=== PATIENT | male | born 1965 | race American Indian/Alaskan Native ===

== ENCOUNTER 2016-12-07 01:53 | Inpatient (IN) | payer OTHER, SELFPAY ==
[2016-12-07] MEDS ORDERED: NACL 0.9% 1000 ML 1,000 ML IV ONE ×2 (02:00→04:19)
[2016-12-07 02:31] LABS: Hematocrit 32.3 % (35.5-45.6); Hemoglobin 10.9 gm/dl (11.8-15.2); Mean Corpuscular HGB Conc 34 % (32-34); Mean Corpuscular Hemoglobin 32 pg (28-32); Mean Corpuscular Volume 93 fl (84-94); Red Blood Count 3.46 M/mm3 (3.65-5.03); Red Cell Distribution Width 13.4 % (13.2-15.2); White Blood Count 11.2 K/mm3 (4.5-11.0)
[2016-12-07 02:32] LABS: Platelet Count 292 K/mm3 (140-440)
[2016-12-07 02:42] LABS: INR 1.08 (0.87-1.13); Partial Thromboplastin Time 23.7 Sec. (24.2-36.6)
[2016-12-07 02:55] LABS: Alanine Aminotransferase 12 units/L (7-56); Albumin 3.5 g/dL (3.9-5); Alkaline Phosphatase 57 units/L (35-129); Anion Gap 18 mmol/L; Bilirubin,Total 0.3 mg/dL (0.1-1.2); Blood Urea Nitrogen 27 mg/dL (9-20); Calcium 8.3 mg/dL (8.4-10.2); Carbon Dioxide 22 mmol/L (22-30); Chloride 102.3 mmol/L (98-107); Glucose 151 mg/dL (75-100); Lipase 25 units/L (13-60); Sodium 138 mmol/L (137-145); Total Protein 6.9 g/dL (6.3-8.2)
--- NOTE | 2016-12-07 03:46 | Emergency Department Report ---
ED GI Bleed HPI - General Chief complaint: GI Bleed Stated complaint: RECTAL BLEEDING Time Seen by Provider: 12/07/16 03:38 Source: patient Mode of arrival: Ambulatory Limitations: No Limitations - History of Present Illness Initial comments: This is a 51-year-old gentleman who complains of having several large bloody bowel movements over the course of the day. He states he had some small amount of bright red blood with stool yesterday. He states this happened once he reports through the day today though he's had intermittent cramping pains followed by large bloody bowel movements. The largest liquid in nature. He is reported feeling lightheaded as well with this. He ultimately did present here to the hospital. After being in the waiting room and then presenting in triage she did pass out. He states he has no belly pain currently while I examine. He does give a history however of over the last 6-8 months having intermittent left-sided lower abdominal pains. He reports these will come for a day or 2 and then resolved. He denies any fevers he denies any specific trauma otherwise. He denies any nausea vomiting. He denies any hematemesis. Severity scale (0 -10): 5 - Related Data Home Medications Medication Instructions Recorded Confirmed Last Taken Multivitamin [Multi-Vitamin Daily] 03/26/14 03/26/14 Unknown Previous Rx's Medication Instructions Recorded Last Taken Type HYDROcodone/APAP 5-325 [[place] 1 each PO Q6HR PRN #14 tablet 03/26/14 Unknown Rx 5/325] Ibuprofen [Motrin 800 MG tab] 800 mg PO Q8H #30 tablet 03/26/14 Unknown Rx Ibuprofen [Motrin 800 MG tab] 800 mg PO Q8H PRN #30 tablet 05/20/14 Unknown Rx oxyCODONE /ACETAMINOPHEN [Percocet 1 tab PO Q6HR PRN #30 tablet 05/20/14 Unknown Rx 5/325] Allergies Allergy/AdvReac Type Severity Reaction Status Date / Time No Known Allergies Allergy Verified 03/26/14 21:16 ED Review of Systems ROS: Stated complaint: RECTAL BLEEDING Other details as noted in HPI Comment: All other systems reviewed and negative Constitutional: other (lightheaded). denies: chills, fever Eyes: denies: eye pain, eye discharge, vision change ENT: denies: ear pain, throat pain Respiratory: denies: cough, shortness of breath, wheezing Cardiovascular: denies: chest pain, palpitations Endocrine: no symptoms reported Gastrointestinal: hematochezia. denies: abdominal pain, nausea, diarrhea Genitourinary: denies: urgency, dysuria Musculoskeletal: denies: back pain, joint swelling, arthralgia Skin: denies: rash, lesions Neurological: denies: headache, weakness, paresthesias Psychiatric: denies: anxiety, depression Hematological/Lymphatic: denies: easy bleeding, easy bruising ED Past Medical Hx - Past Medical History Previous Medical History?: Yes Hx Diabetes: Yes - Surgical History Past Surgical History?: No - Social History Smoking Status: Never Smoker Substance Use Type: None - Medications Home Medications: Home Medications Medication Instructions Recorded Confirmed Last Taken Type HYDROcodone/APAP 5-325 [[place] 1 each PO Q6HR PRN #14 tablet 03/26/14 Unknown Rx 5/325] Ibuprofen [Motrin 800 MG tab] 800 mg PO Q8H #30 tablet 03/26/14 Unknown Rx Multivitamin [Multi-Vitamin Daily] 03/26/14 03/26/14 Unknown History Ibuprofen [Motrin 800 MG tab] 800 mg PO Q8H PRN #30 tablet 05/20/14 Unknown Rx oxyCODONE /ACETAMINOPHEN [Percocet 1 tab PO Q6HR PRN #30 tablet 05/20/14 Unknown Rx 5/325] ED Physical Exam - General Limitations: No Limitations General appearance: alert, in no apparent distress - Head Head exam: Present: atraumatic, normocephalic - Eye Eye exam: Present: normal appearance, EOMI. Absent: scleral icterus - ENT ENT exam: Present: normal exam, normal orophraynx, mucous membranes moist - Neck Neck exam: Present: normal inspection, full ROM. Absent: meningismus, lymphadenopathy - Respiratory Respiratory exam: Present: normal lung sounds bilaterally. Absent: respiratory distress, wheezes, rales - Cardiovascular Cardiovascular Exam: Present: regular rate, normal rhythm. Absent: systolic murmur, diastolic murmur, rubs, gallop - GI/Abdominal GI/Abdominal exam: Present: soft, normal bowel sounds. Absent: distended, tenderness, rebound, organomegaly - Rectal Rectal exam: Present: deferred - Extremities Exam Extremities exam: Present: normal inspection, full ROM. Absent: pedal edema, calf tenderness - Back Exam Back exam: Present: normal inspection. Absent: tenderness, CVA tenderness (L) - Neurological Exam Neurological exam: Present: alert, oriented X3, normal gait - Psychiatric Psychiatric exam: Present: normal affect, normal mood - Skin Skin exam: Present: warm, dry, intact, normal color. Absent: rash ED Course Vital Signs 12/07/16 12/07/16 12/07/16 01:57 02:23 02:30 Temperature 98.4 F Pulse Rate 90 82 77 Respiratory 20 18 14 Rate Blood Pressure 112/74 Blood Pressure 121/84 [Right] O2 Sat by Pulse 100 100 Oximetry 12/07/16 12/07/16 02:40 02:50 Temperature Pulse Rate 79 78 Respiratory 13 11 L Rate Blood Pressure 112/74 106/73 Blood Pressure [Right] O2 Sat by Pulse 100 100 Oximetry - Reevaluation(s) Reevaluation #1: 12/07/16 03:39 ECG at 159 with normal sinus rhythm at 88 bpm with normal [place] and QRS. Normal axis noted no acute ST segment elevation or depression is appreciated. Reevaluation #2: 12/07/16 04:28 Upon my evaluation of the patient he is comfortable lying in the bed. He is currently getting IV fluids. His blood pressure is normal as is his heart rate. He did have a syncopal episode in triage which I suspect be related to orthostatic due to hypovolemia from blood loss acutely. His hemoglobin from the last test result we have in the computer was 14 this was 3 years ago. Hemoglobin today is 10.9. I do suspect he's had at least a couple of grams of blood loss with the bleeding over the course of the day. His BUNs slightly elevated at 27. This would correlate more consistently with possibility of upper GI bleed. However they the bloody stool that I would sign in the toilet didn't have a classic melanotic. Appearance to it. I am more suspicious of a lower GI source. Patient does report this chronic history of left-sided lower abdominal pains which causes me suspicion for questionable diverticulitis. I do question whether this may be a diverticular bleed. Regardless at this point he is stable. He is appearing to have some ongoing bleeding but it seems to slow down. He's only had 1 bloody stool in the past 4 hours since arriving here. Again hemodynamically is appropriate. I'm giving him IV fluids at this time. He has been typed and screened. I have not elected to put in his second IV at this time as he is quite stable. We will start him on Protonix as well as into the hospital for continued evaluation. Dr. Conde from the hospitalist service was contacted. ED Medical Decision Making - Lab Data Result diagrams: 12/07/16 02:18 12/07/16 02:18 Critical care attestation.: If time is entered above; I have spent that time in minutes in the direct care of this critically ill patient, excluding procedure time. ED Disposition Clinical Impression: GI bleed Qualifiers: GI bleed type/associated pathology: unspecified gastrointestinal hemorrhage type Qualified Code(s): K92.2 - Gastrointestinal hemorrhage, unspecified Syncope Qualifiers: Syncope type: unspecified Qualified Code(s): R55 - Syncope and collapse Disposition: OP ADMITTED IP TO THIS HOSP Is pt being admited?: Yes Does the pt Need Aspirin: No Condition: Stable Instructions: Syncope (ED) Referrals: PRIMARY CARE, [Primary Care Provider] - 3-5 Days Forms: Accompanied Note Time of Disposition: 04:22
[2016-12-07 03:51] LABS: Basophils % (Manual) 0 % (0.0-1.8); Blastocytes % (Manual) 0 %
[2016-12-07 03:52] LABS: Anisocytosis 1+
[2016-12-07 03:53] LABS: Smudge Cells Rare
[2016-12-07 03:54] LABS: Diff Status Complete
[2016-12-07 03:55] LABS: Platelet Clumps Rare
[2016-12-07] MEDS ORDERED: PROTONIX IV ONE (04:31)
[2016-12-07 04:41] LABS: Bilirubin,Urine NEG (Negative); Blood,Urine NEG (Negative); Ketones,Urine NEG (Negative); Leukocyte Esterase,Urine NEG (Negative); Mucus,Urine FEW /HPF; Nitrite,Urine NEG (Negative); Protein,Urine <15 mg/dL mg/dL (Negative); Urobilinogen,Urine < 2.0 mg/dL (<2.0); WBC,Urine < 1.0 /HPF (0.0-6.0)
[2016-12-07] MEDS ORDERED: ZOFRAN IV PRN (04:50)
[2016-12-07] MEDS ORDERED: MILK OF MAGNESIA PO PRN (04:50)
[2016-12-07] MEDS ORDERED: DULCOLAX PR PRN (04:50)
[2016-12-07] MEDS ORDERED: MORPHINE IV PRN (04:50)
--- NOTE | 2016-12-07 05:02 | History and Physical Report ---
History of Present Illness Date of examination: 12/07/16 History of present illness: 51 year old man with a history of hypertension, diabetes comes to the emergency room with complaints of blood per rectum that started yesterday. He had 3 episodes yesterday, last night he had 5 episodes and one episode in the emergency room, described as dark red. Also complaining of abdominal pain, left lower quadrant, intermittent in nature, sharp, crampy, intensity 7/10, no radiation any cannot identify relieving factor, worse with food. Admits to nausea, no vomiting, fever. He takes Aleve for the pain with some relief. He stated he said this pain for 9 months Patient denies chest pain, palpitation, shortness of breath, cough, dysuria, frequency, focal weakness, dysarthria, fever chills, polydipsia polyuria, hot or cold intolerance, easy bruisability, or rash or bleeding from mucosal membrane, rhinorrhea, epistaxis, earache, tinnitus, blurry vision, eye discharge , anxiety, depression. Other review of systems negative Medications and Allergies Allergies Allergy/AdvReac Type Severity Reaction Status Date / Time No Known Allergies Allergy Verified 03/26/14 21:16 Home Medications Medication Instructions Recorded Confirmed Last Taken Type Lipitor 12/07/16 Unknown History metFORMIN 12/07/16 Unknown History Ferrous Sulfate [Feosol 325 MG tab] 325 mg PO BID #60 tablet 12/09/16 Unknown Rx Pantoprazole [Protonix TAB] 40 mg PO QDAY #30 tablet 12/09/16 Unknown Rx Active Meds: Active Medications Sodium Chloride (Nacl 0.9% 1000 Ml) 1,000 mls @ 250 mls/hr IV ONCE ONE Stop: 12/07/16 05:59 Last Admin: 12/07/16 02:45 Dose: 250 mls/hr Sodium Chloride (Nacl 0.9% 1000 Ml) 1,000 mls @ 999 mls/hr IV BOLUS ONE Stop: 12/07/16 05:19 Last Admin: 12/07/16 04:30 Dose: 999 mls/hr Exam - Physical Exam Narrative exam: Gen. appearance: Patient lying in bed, no apparent distress HEENT: Normocephalic, atraumatic, pupils equally round and reactive to light, extraocular movement intact, and no sclericterus,. No JVD or thyromegaly or nodule,neck supple, no carotid bruit ,mucous membranes moist, no exudate or erythema Heart: S1, S2, regular rate and rhythm Lungs: Clear to auscultation bilaterally, breathing comfortable Abdomen: Positive bowel sounds, nontender, nondistended, no organomegaly Extremity: No edema, cyanosis, clubbing Skin: No rash, nodules, warm, dry Neuro: Oriented 3, cranial nerves II-12 intact, speech is fluent, motor and sensory intact - Constitutional Vitals: Temp Pulse Resp BP Pulse Ox 98.4 F 77 15 117/76 100 12/07/16 01:57 12/07/16 04:40 12/07/16 04:40 12/07/16 04:40 12/07/16 04:40 Results - Labs CBC & Chem 7: 12/09/16 06:47 12/08/16 06:41 Labs: Abnormal lab results 12/07/16 12/07/16 12/07/16 Range/Units 02:18 02:18 02:18 WBC 11.2 H (4.5-11.0) K/mm3 RBC 3.46 L (3.65-5.03) M/mm3 Hgb 10.9 L (11.8-15.2) gm/dl Hct 32.3 L (35.5-45.6) % Seg Neuts % (Manual) 38.0 L (40.0-70.0) % Lymphocytes % (Manual) 39.0 H (13.4-35.0) % Monocytes % (Manual) 8.0 H (0.0-7.3) % Eosinophils % (Manual) 6.0 H (0.0-4.3) % Monocytes # (Manual) 0.9 H (0.0-0.8) K/mm3 Eosinophils # (Manual) 0.7 H (0.0-0.4) K/mm3 APTT 23.7 L (24.2-36.6) Sec. BUN 27 H (9-20) mg/dL Glucose 151 H (75-100) mg/dL Calcium 8.3 L (8.4-10.2) mg/dL Albumin 3.5 L (3.9-5) g/dL Assessment and Plan GIB, probably diverticular Abdominal pain Hypertension now normotensive Diabetes Admit to medicine Start IV fluid, iv protonix, check serial hemoglobin Obtain CT abd, consult GI Check fingersticks
[2016-12-07] MEDS ORDERED: D50W (25GM) IV PRN ×2 (05:13→12:39)
[2016-12-07 05:35] LABS: Hematocrit 31.2 % (35.5-45.6); Hemoglobin 10.7 gm/dl (11.8-15.2)
--- NOTE | 2016-12-07 05:56 | Cat Scan Report ---
FINAL REPORT EXAM: CT ABDOMEN PELVIS WO CON HISTORY: abd pain, bpr TECHNIQUE: Noncontrast CT of the abdomen and pelvis performed. No IV or gastrointestinal contrast was administered. Coronal and sagittal reformatted images were obtained. PRIORS: 01/01/2013 FINDINGS: There is some dependent atelectasis at the lung bases. Within the limitations of a non-enhanced study, the visualized liver, spleen, pancreas, adrenal glands and kidneys demonstrate no significant abnormalities. There is no abdominal aortic aneurysm. There is no evidence of intestinal obstruction. The appendix is normal. There is diverticular disease throughout the colon. There is minimal stranding adjacent to the descending/sigmoid colon junction region which raises concern for minimal acute diverticulitis. There is also some wall thickening in the sigmoid colon which is nonspecific. There is some stranding this area as well suggesting possible mild acute diverticulitis this region. As precaution, suggest colonoscopy following resolution of inflammatory process. There is no abscess. There is no free air. The bladder is unremarkable. IMPRESSION: Diverticular disease present throughout colon. Probable minimal to mild acute diverticulitis involving mid sigmoid colon and descending/sigmoid colon junction region. There is some focal wall thickening of the mid sigmoid colon which is likely related to the inflammatory process. As precaution, colonoscopy after resolution of acute inflammation is suggested to exclude a mass in this region.
--- NOTE | 2016-12-07 07:46 | Admit Criteria Form ---
Admission Criteria Documentation: GASTROINTESTINAL BLEEDING, LOWER Clinical Indications for Admission to Inpatient Care ( Place 'X' for any and all applicable criteria): Admission is indicated for ANY ONE of the following(1)(2)(3)(4)(5): [X ]I. Active gross bleeding per rectum [ ]II. Inpatient admission required rather than observation care (Also use Gastrointestinal Bleeding, Lower: Observation Care as appropriate) because of ANY ONE of the following: [ ]a) Hemodynamic instability that is severe or persistent [ ]b) Anemia requiring inpatient admission as indicated by ALL of the following: [ ]1) Presence of significant clinical finding indicated by ANY ONE of the following: [ ]A. Tachycardia for age [ ]B. Orthostatic vital sign changes [ ]C. Cognitive impairment [ ]D. Heart failure [ ]E. Chest pain [ ]F. Exertional dyspnea [ ]G. Other findings suggesting inadequate perfusion (eg, peripheral or myocardial ischemia, end organ dysfunction) [ ]2) Initial (eg, emergency department, observation care) treatment with transfusion or volume replacement is judged inappropriate (due to severity of the finding) or has been ineffective [ ]c) Severe pain requiring acute inpatient management [ ]d) Absent bowel sounds with complete ileus [ ]e) Signs of intestinal obstruction or peritonitis [A] [ ]f) High-risk low platelet count [ ]g) Severe electrolyte abnormalities requiring inpatient care [ ]h) Acute renal failure [ ]i) High fever or infection requiring inpatient admission as indicated by ANY ONE of the following(8)(9): [ ]1) Appropriate outpatient or observation care antimicrobial treatment unavailable, not effective, or not feasible Documented bacteremia [ ]2) Documented bacteremia [ ]3) Temperature greater than 104.9 degrees F ( 40.5 degrees C) (oral) [ ]4) Temperature greater than 103.1 degrees F ( 39.5 degrees C) (oral) or less than 96.8 degrees F (36 degrees C) (rectal) that does not respond to all emergency treatment measures [ ]j) IV fluid to replace significant ongoing losses ( greater than 3 L/m2 per day) [ ]k) Immediate inpatient surgery needed [ ]l) Parenteral nutrition regimen that must be implemented on inpatient basis [ ]m) Other condition, treatment or monitoring requiring inpatient admission [ ]III. Unstable comorbid illness (renal, hepatic, pulmonary, hematologic, neurologic, or cardiac) [ ]IV. Failure to control bleeding after colonoscopy [ ]V. Coagulopathy [ ]. Suspected or known ischemic colitis(6) [ ]VII. Previous aortic graft placement or known aortic aneurysm Extended stay beyond goal length of stay may be needed for(3)(4)(28): [ ]a) Emergency surgery [ ]b) Coagulation abnormalities(26) [ ]c) Recurrent or persistent bleeding, continued vital sign instability(27)( 28) [ ]d) Active comorbidities (eg, renal insufficiency, heart failure, pre- existing liver disease) The original [employer] content created by [employer] has been revised. The portions of the content which have been revised are identified through the use of italic text or in bold, and [facility] has neither reviewed nor approved the modified material. All other unmodified content is copyright [facility] [employer]. Please see references footnoted in the original [employer] edition 2016 Admission Criteria Met: Yes
[2016-12-07 09:16] LABS: Hematocrit 30.8 % (35.5-45.6); Hemoglobin 10.5 gm/dl (11.8-15.2)
[2016-12-07] MEDS ORDERED: PROTONIX IV SCH (10:00)
--- NOTE | 2016-12-07 10:34 | Progress Note ---
Assessment and Plan Assessment and plan: 1. GI bleed. Etiology is unknown. Patient reports taking Aleve and aspirin over the past several weeks. Patient with no new bleeding episodes this morning. Follow-up CT of the abdomen. GI consultation pending. 2. Hypertension. Resume antihypertensive medications. 3. Diabetes mellitus type 2. Continue Accu-Cheks and sliding scale insulin. 4. Mild CAD. Hold aspirin for now. History Interval history: Patient admitted earlier this morning. No new episodes of bleeding. Hospitalist Physical - Constitutional Vitals: Temp Pulse Resp BP Pulse Ox 98.0 F 78 18 104/66 100 12/07/16 08:35 12/07/16 08:35 12/07/16 08:35 12/07/16 08:35 12/07/16 10:22 General appearance: Present: no acute distress, well-nourished - EENT Eyes: Present: PERRL, EOM intact ENT: hearing intact, clear oral mucosa, dentition normal - Neck Neck: Present: supple, normal ROM - Respiratory Respiratory effort: normal Respiratory: bilateral: CTA - Cardiovascular Rhythm: regular Heart Sounds: Present: S1 & S2. Absent: gallop, rub - Extremities Extremities: no ischemia, No edema, Full ROM - Abdominal General gastrointestinal: soft, non-tender, non-distended, normal bowel sounds - Integumentary Integumentary: Present: clear, warm, dry - Neurologic Neurologic: CNII-XII intact, moves all extremities Results - Labs CBC & Chem 7: 12/07/16 08:17 12/07/16 02:18 Labs: Laboratory Last Values WBC 11.2 K/mm3 (4.5-11.0) H 12/07/16 02:18 RBC 3.46 M/mm3 (3.65-5.03) L 12/07/16 02:18 Hgb 10.5 gm/dl (11.8-15.2) L 12/07/16 08:17 Hct 30.8 % (35.5-45.6) L 12/07/16 08:17 MCV 93 fl (84-94) 12/07/16 02:18 MCH 32 pg (28-32) 12/07/16 02:18 MCHC 34 % (32-34) 12/07/16 02:18 RDW 13.4 % (13.2-15.2) 12/07/16 02:18 Plt Count 292 K/mm3 (140-440) 12/07/16 02:18 Lymph # Road Maker 12/07/16 02:18 Add Manual Diff Complete 12/07/16 02:18 Total Counted 100 12/07/16 02:18 Seg Neuts % (Manual) 38.0 % (40.0-70.0) L 12/07/16 02:18 Band Neutrophils % 2.0 % 12/07/16 02:18 Lymphocytes % (Manual) 39.0 % (13.4-35.0) H 12/07/16 02:18 Reactive Lymphs % (Man) 0 % 12/07/16 02:18 Monocytes % (Manual) 8.0 % (0.0-7.3) H 12/07/16 02:18 Eosinophils % (Manual) 6.0 % (0.0-4.3) H 12/07/16 02:18 Basophils % (Manual) 0 % (0.0-1.8) 12/07/16 02:18 Metamyelocytes % 7.0 % 12/07/16 02:18 Myelocytes % 0 % 12/07/16 02:18 Promyelocytes % 0 % 12/07/16 02:18 Blast Cells % 0 % 12/07/16 02:18 Nucleated RBC % Not Reportable 12/07/16 02:18 Seg Neutrophils # Man 4.3 K/mm3 (1.8-7.7) 12/07/16 02:18 Band Neutrophils # 0.2 K/mm3 12/07/16 02:18 Lymphocytes # (Manual) 4.4 K/mm3 (1.2-5.4) 12/07/16 02:18 Abs React Lymphs (Man) 0.0 K/mm3 12/07/16 02:18 Monocytes # (Manual) 0.9 K/mm3 (0.0-0.8) H 12/07/16 02:18 Eosinophils # (Manual) 0.7 K/mm3 (0.0-0.4) H 12/07/16 02:18 Basophils # (Manual) 0.0 K/mm3 (0.0-0.1) 12/07/16 02:18 Metamyelocytes # 0.8 K/mm3 12/07/16 02:18 Myelocytes # 0.0 K/mm3 12/07/16 02:18 Promyelocytes # 0.0 K/mm3 12/07/16 02:18 Blast Cells # 0.0 K/mm3 12/07/16 02:18 WBC Morphology Not Reportable 12/07/16 02:18 Hypersegmented Neuts Not Reportable 12/07/16 02:18 Hyposegmented Neuts Not Reportable 12/07/16 02:18 Hypogranular Neuts Not Reportable 12/07/16 02:18 Smudge Cells Rare 12/07/16 02:18 Toxic Granulation Not Reportable 12/07/16 02:18 Toxic Vacuolation Not Reportable 12/07/16 02:18 Dohle Bodies Not Reportable 12/07/16 02:18 Pelger-Huet Anomaly Not Reportable 12/07/16 02:18 Cornelia Rods Not Reportable 12/07/16 02:18 Platelet Estimate Appears normal 12/07/16 02:18 Clumped Platelets Rare 12/07/16 02:18 Plt Clumps, EDTA Not Reportable 12/07/16 02:18 Large Platelets Not Reportable 12/07/16 02:18 Giant Platelets Not Reportable 12/07/16 02:18 Platelet Satelliting Not Reportable 12/07/16 02:18 Plt Morphology Comment Not Reportable 12/07/16 02:18 RBC Morphology Not Reportable 12/07/16 02:18 Dimorphic RBCs Not Reportable 12/07/16 02:18 Polychromasia Not Reportable 12/07/16 02:18 Hypochromasia Not Reportable 12/07/16 02:18 Poikilocytosis Not Reportable 12/07/16 02:18 Anisocytosis 1+ 12/07/16 02:18 Microcytosis Not Reportable 12/07/16 02:18 Macrocytosis Not Reportable 12/07/16 02:18 Spherocytes Not Reportable 12/07/16 02:18 Pappenheimer Bodies Not Reportable 12/07/16 02:18 Sickle Cells Not Reportable 12/07/16 02:18 Target Cells Not Reportable 12/07/16 02:18 Tear Drop Cells Not Reportable 12/07/16 02:18 Ovalocytes Not Reportable 12/07/16 02:18 Helmet Cells Not Reportable 12/07/16 02:18 [employer] Bodies Not Reportable 12/07/16 02:18 [place] Rings Not Reportable 12/07/16 02:18 Katie Cells Not Reportable 12/07/16 02:18 Bite Cells Not Reportable 12/07/16 02:18 Crenated Cell Not Reportable 12/07/16 02:18 Elliptocytes Not Reportable 12/07/16 02:18 Acanthocytes (Spur) Not Reportable 12/07/16 02:18 Rouleaux Not Reportable 12/07/16 02:18 Hemoglobin C Crystals Not Reportable 12/07/16 02:18 Schistocytes Not Reportable 12/07/16 02:18 Malaria parasites Not Reportable 12/07/16 02:18 Rohan Bodies Not Reportable 12/07/16 02:18 Hem Pathologist Commnt No 12/07/16 02:18 PT 13.9 Sec. (12.2-14.9) 12/07/16 02:18 INR 1.08 (0.87-1.13) 12/07/16 02:18 APTT 23.7 Sec. (24.2-36.6) L 12/07/16 02:18 Carbon Dioxide 22 mmol/L (22-30) 12/07/16 02:18 BUN 27 mg/dL (9-20) H 12/07/16 02:18 Creatinine 0.9 mg/dL (0.8-1.5) 12/07/16 02:18 Estimated GFR > 60 ml/min 12/07/16 02:18 BUN/Creatinine Ratio 30.00 % 12/07/16 02:18 Glucose 151 mg/dL (75-100) H 12/07/16 02:18 Calcium 8.3 mg/dL (8.4-10.2) L 12/07/16 02:18 Total Bilirubin 0.3 mg/dL (0.1-1.2) 12/07/16 02:18 AST 16 units/L (5-40) 12/07/16 02:18 ALT 12 units/L (7-56) 12/07/16 02:18 Alkaline Phosphatase 57 units/L (35-129) 12/07/16 02:18 Troponin T < 0.010 ng/mL (0.00-0.029) 12/07/16 08:17 Total Protein 6.9 g/dL (6.3-8.2) 12/07/16 02:18 Albumin 3.5 g/dL (3.9-5) L 12/07/16 02:18 Albumin/Globulin Ratio 1.0 % 12/07/16 02:18 Lipase 25 units/L (13-60) 12/07/16 02:18 Urine Color Yellow (Yellow) 12/07/16 04:16 Urine Turbidity Clear (Clear) 12/07/16 04:16 Urine pH 5.0 (5.0-7.0) 12/07/16 04:16 Ur Specific [place] 1.026 (1.003-1.030) 12/07/16 04:16 Urine Protein <15 mg/dl mg/dL (Negative) 12/07/16 04:16 Urine Glucose (UA) Neg mg/dL (Negative) 12/07/16 04:16 Urine Ketones Neg mg/dL (Negative) 12/07/16 04:16 Urine Blood Neg (Negative) 12/07/16 04:16 Urine Nitrite Neg (Negative) 12/07/16 04:16 Urine Bilirubin Neg (Negative) 12/07/16 04:16 Urine Urobilinogen < 2.0 mg/dL (<2.0) 12/07/16 04:16 Ur Leukocyte Esterase Neg (Negative) 12/07/16 04:16 Urine WBC (Auto) < 1.0 /HPF (0.0-6.0) 12/07/16 04:16 Urine RBC (Auto) 0.0 /HPF (0.0-6.0) 12/07/16 04:16 Urine Mucus Few /HPF 12/07/16 04:16 Blood Type O POSITIVE 12/07/16 02:18 Antibody Screen Negative 12/07/16 02:18
[2016-12-07 14:41] LABS: Hematocrit 31.8 % (35.5-45.6); Hemoglobin 10.9 gm/dl (11.8-15.2)
[2016-12-07] MEDS: NOVOLOG SUB-Q SCH ×2 (17:40→22:01)
[2016-12-07] MEDS ORDERED: GOLYTELY PO ONE (18:05)
--- NOTE | 2016-12-07 18:11 | Gastroenterology Consultation ---
History of Present Illness - Reason for Consult Consult date: 12/07/16 GI bleed Requesting physician: ANGELITO VAIL - History of Present Illness The patient is a 51 yo male with rectal bleeding for the last 2 days. He has never had this before, and this was acute onset. He has had hematochezia to BRB , no melena nor hematemesis. He denies dyspepsia, dysphagia, or N/V. He has no hx of PUD, but does take ASA and Aleve on a daily basis. He has no hx of abdominal surgery nor prior endoscopy. There is no family hx of GI cancer, but 2 siblings have Crohns by his report. He has no CP or SOB, and has relatively well-controlled HTN and DM. Past History Past Medical History: diabetes, hypertension, other (Dyslipidemia) Past Surgical History: No surgical history Social history: lives with family. denies: alcohol abuse, IV drug use Family history: other (Crohns disease in a sister and brother) Medications and Allergies Allergies Allergy/AdvReac Type Severity Reaction Status Date / Time No Known Allergies Allergy Verified 03/26/14 21:16 Home Medications Medication Instructions Recorded Confirmed Last Taken Type Aspirin [Aspirin BABY CHEW TAB] 81 mg PO DAILY 12/07/16 12/07/16 Unknown History Lipitor 12/07/16 Unknown History metFORMIN 12/07/16 Unknown History Active Meds: Active Medications Bisacodyl (Dulcolax) 10 mg LA QDAY PRN PRN Reason: Constipation unrelieved by MOM Dextrose (D50w (25gm)) 50 ml IV PRN PRN PRN Reason: Hypoglycemia Dextrose (D50w (25gm)) 50 ml IV PRN PRN PRN Reason: Hypoglycemia Sodium Chloride (Nacl 0.9% 1000 Ml) 1,000 mls @ 100 mls/hr IV DIRECT NEO Insulin Aspart (Novolog) 0 units SUB-Q ACHS NEO PRN Reason: Protocol Magnesium Hydroxide (Milk Of Magnesia) 30 ml PO Q4H PRN PRN Reason: Constipation Morphine Sulfate (Morphine) 2 mg IV Q4H PRN PRN Reason: Pain, Moderate (4-6) Ondansetron HCl (Zofran) 4 mg IV Q8H PRN PRN Reason: N/V unrelieved by Reglan Review of Systems - Review of Systems All systems: negative (as noted in the HPI.) Exam - Constitutional Vital Signs: Temp Pulse Resp BP Pulse Ox 98.5 F 72 18 98/59 100 12/07/16 11:30 12/07/16 11:30 12/07/16 11:30 12/07/16 11:30 12/07/16 10:22 General appearance: no acute distress - EENT Eyes: PERRL, EOM intact ENT: hearing intact, clear oral mucosa, dentition normal - Neck Neck: supple, normal ROM - Respiratory Respiratory effort: normal Respiratory: bilateral: CTA - Cardiovascular Rhythm: regular Heart Sounds: Present: S1 & S2 Extremities: no ischemia, No edema - Gastrointestinal General gastrointestinal: Present: soft, non-tender, tender (Mild in the LUQ) - Integumentary Integumentary: Present: clear, warm, dry - Neurologic Neurological: alert and oriented x3 - Psychiatric Psychiatric: appropriate mood/affect - Labs CBC & Chem 7: 12/07/16 13:43 12/07/16 02:18 Lab Results: Laboratory Results - last 24 hr 12/07/16 12/07/16 12/07/16 05:20 05:20 08:17 Hgb 10.7 L Hct 31.2 L Troponin T < 0.010 < 0.010 12/07/16 12/07/16 08:17 13:43 Hgb 10.5 L 10.9 L Hct 30.8 L 31.8 L Troponin T Assessment and Plan - Patient Problems (1) Acute blood loss anemia Current Visit: Yes Status: Acute Plan to address problem: - Given NSAID use, will continue protonix and get EGD. - Will also get colonoscopy given family hx of Crohns disease, age, and hematochezia. - Continue clears until Mn, and prep with Golyte. - Serial hcts and transfuse as needed.
[2016-12-07 18:13] LABS: Hematocrit 32.6 % (35.5-45.6); Hemoglobin 10.9 gm/dl (11.8-15.2)
[2016-12-08] MEDS: NACL 0.9% 1000 ML 1,000 ML IV SCH ×2 (06:08→13:13)
[2016-12-08 07:02] LABS: Hematocrit 29.3 % (35.5-45.6); Mean Corpuscular HGB Conc 34 % (32-34); Mean Corpuscular Hemoglobin 32 pg (28-32); Mean Corpuscular Volume 94 fl (84-94); Platelet Count 227 K/mm3 (140-440); Red Blood Count 3.12 M/mm3 (3.65-5.03); Red Cell Distribution Width 13.6 % (13.2-15.2); White Blood Count 4.8 K/mm3 (4.5-11.0)
[2016-12-08 07:17] LABS: Anion Gap 12 mmol/L; BUN/Creatinine Ratio 13.75; Blood Urea Nitrogen 11 mg/dL (9-20); Calcium 8.2 mg/dL (8.4-10.2); Carbon Dioxide 28 mmol/L (22-30); Chloride 101.1 mmol/L (98-107); Glucose 112 mg/dL (75-100); Sodium 137 mmol/L (137-145)
[2016-12-08 10:16] LABS: Anisocytosis 1+; Basophils % (Manual) 0 % (0.0-1.8); Blastocytes % (Manual) 0 %; Eosinophils % (Manual) 0 % (0.0-4.3)
[2016-12-08 10:17] LABS: Diff Status Complete
[2016-12-08] MEDS: NOVOLOG SUB-Q SCH ×3 (11:03→21:04)
[2016-12-08] MEDS: PROTONIX PO SCH (11:13)
[2016-12-08] MEDS ORDERED: WATER FOR IRRIG STERILE IR ONE ×2 (12:23→15:00)
[2016-12-08] MEDS ORDERED: NACL 0.9% 1000 ML 1,000 ML ONE (12:51)
--- NOTE | 2016-12-08 12:54 | Anesthesia Consultation ---
Anesthesia Consult and Med Hx Date of service: 12/08/16 - Airway Anesthetic Teeth Evaluation: Good (chipped) ROM Head & Neck: Adequate Mental/Hyoid Distance: Adequate Mallampati Class: Class II Intubation Access Assessment: Probably Good - Pulmonary Exam CTA: Yes - Cardiac Exam Cardiac Exam: RRR - Pre-Operative Health Status ASA Pre-Surgery Classification: ASA2 Proposed Anesthetic Plan: MAC - Pulmonary Hx Smoking: No Hx Asthma: No - Cardiovascular System Hx Hypertension: Yes Hx Coronary Artery Disease: Yes (Stress test done, small blockage on the artery) - Endocrine Hx Non-Insulin Dependent Diabetes: Yes - Hematic Hx Anemia: Yes Hx Sickle Cell Disease: No - Other Systems Hx Alcohol Use: No Hx Substance Use: No Hx Cancer: No - Additional Comments Anesthesia Medical History Comments: No previous anesthesia history
[2016-12-08] MEDS ORDERED: DIPRIVAN 10 MG/ML IV ONE ×3 (12:57)
[2016-12-08] MEDS ORDERED: WATER FOR IRRIG STERILE ONE (13:04)
--- NOTE | 2016-12-08 13:05 | Anesthesia Day of Surgery ---
Anesthesia Day of Surgery - Day of Surgery Patient Examined: Yes Patient H&P Reviewed: Yes Patient is NPO: Yes
--- NOTE | 2016-12-08 13:11 | Progress Note ---
Assessment and Plan Assessment and plan: 1. GI bleed. Upper and lower endoscopy to be completed by GI. Continue Protonix. 2. Hypertension. Resume antihypertensive medications. 3. Diabetes mellitus type 2. Continue Accu-Cheks and sliding scale insulin. 4. Mild CAD. Hold aspirin for now. History Interval history: No new episodes of bleeding. Hospitalist Physical - Constitutional Vitals: Temp Pulse Resp BP Pulse Ox 98.2 F 85 18 117/75 96 12/08/16 12:51 12/08/16 12:51 12/08/16 12:51 12/08/16 12:51 12/08/16 12:51 General appearance: Present: no acute distress, well-nourished - EENT Eyes: Present: PERRL, EOM intact ENT: hearing intact, clear oral mucosa, dentition normal - Neck Neck: Present: supple, normal ROM - Respiratory Respiratory effort: normal Respiratory: bilateral: CTA - Cardiovascular Rhythm: regular Heart Sounds: Present: S1 & S2. Absent: gallop, rub - Extremities Extremities: no ischemia, No edema, Full ROM - Abdominal General gastrointestinal: soft, non-tender, non-distended, normal bowel sounds - Integumentary Integumentary: Present: clear, warm, dry - Neurologic Neurologic: CNII-XII intact, moves all extremities Results - Labs CBC & Chem 7: 12/08/16 06:41 12/08/16 06:41 Labs: Laboratory Last Values WBC 4.8 K/mm3 (4.5-11.0) 12/08/16 06:41 RBC 3.12 M/mm3 (3.65-5.03) L 12/08/16 06:41 Hgb 10.0 gm/dl (11.8-15.2) L 12/08/16 06:41 Hct 29.3 % (35.5-45.6) L 12/08/16 06:41 MCV 94 fl (84-94) 12/08/16 06:41 MCH 32 pg (28-32) 12/08/16 06:41 MCHC 34 % (32-34) 12/08/16 06:41 RDW 13.6 % (13.2-15.2) 12/08/16 06:41 Plt Count 227 K/mm3 (140-440) 12/08/16 06:41 Lymph % (Auto) Enterprise Integration Developer 12/08/16 06:41 Lymph # Enterprise Integration Developer 12/07/16 02:18 Add Manual Diff Complete 12/08/16 06:41 Total Counted 100 12/08/16 06:41 Seg Neutrophils % Enterprise Integration Developer 12/08/16 06:41 Seg Neuts % (Manual) 31.0 % (40.0-70.0) L 12/08/16 06:41 Band Neutrophils % 3.0 % 12/08/16 06:41 Lymphocytes % (Manual) 52.0 % (13.4-35.0) H 12/08/16 06:41 Reactive Lymphs % (Man) 0 % 12/08/16 06:41 Monocytes % (Manual) 14.0 % (0.0-7.3) H 12/08/16 06:41 Eosinophils % (Manual) 0 % (0.0-4.3) 12/08/16 06:41 Basophils % (Manual) 0 % (0.0-1.8) 12/08/16 06:41 Metamyelocytes % 0 % 12/08/16 06:41 Myelocytes % 0 % 12/08/16 06:41 Promyelocytes % 0 % 12/08/16 06:41 Blast Cells % 0 % 12/08/16 06:41 Nucleated RBC % Not Reportable 12/08/16 06:41 Seg Neutrophils # Man 1.5 K/mm3 (1.8-7.7) L 12/08/16 06:41 Band Neutrophils # 0.1 K/mm3 12/08/16 06:41 Lymphocytes # (Manual) 2.5 K/mm3 (1.2-5.4) 12/08/16 06:41 Abs React Lymphs (Man) 0.0 K/mm3 12/08/16 06:41 Monocytes # (Manual) 0.7 K/mm3 (0.0-0.8) 12/08/16 06:41 Eosinophils # (Manual) 0.0 K/mm3 (0.0-0.4) 12/08/16 06:41 Basophils # (Manual) 0.0 K/mm3 (0.0-0.1) 12/08/16 06:41 Metamyelocytes # 0.0 K/mm3 12/08/16 06:41 Myelocytes # 0.0 K/mm3 12/08/16 06:41 Promyelocytes # 0.0 K/mm3 12/08/16 06:41 Blast Cells # 0.0 K/mm3 12/08/16 06:41 WBC Morphology Not Reportable 12/08/16 06:41 Hypersegmented Neuts Not Reportable 12/08/16 06:41 Hyposegmented Neuts Not Reportable 12/08/16 06:41 Hypogranular Neuts Not Reportable 12/08/16 06:41 Smudge Cells Not Reportable 12/08/16 06:41 Toxic Granulation Not Reportable 12/08/16 06:41 Toxic Vacuolation Not Reportable 12/08/16 06:41 Dohle Bodies Not Reportable 12/08/16 06:41 Pelger-Huet Anomaly Not Reportable 12/08/16 06:41 Cornelia Rods Not Reportable 12/08/16 06:41 Platelet Estimate Not Reportable 12/08/16 06:41 Clumped Platelets Not Reportable 12/08/16 06:41 Plt Clumps, EDTA Not Reportable 12/08/16 06:41 Large Platelets Not Reportable 12/08/16 06:41 Giant Platelets Not Reportable 12/08/16 06:41 Platelet Satelliting Not Reportable 12/08/16 06:41 Plt Morphology Comment Not Reportable 12/08/16 06:41 RBC Morphology Not Reportable 12/08/16 06:41 Dimorphic RBCs Not Reportable 12/08/16 06:41 Polychromasia Not Reportable 12/08/16 06:41 Hypochromasia Not Reportable 12/08/16 06:41 Poikilocytosis Not Reportable 12/08/16 06:41 Anisocytosis 1+ 12/08/16 06:41 Microcytosis Not Reportable 12/08/16 06:41 Macrocytosis Not Reportable 12/08/16 06:41 Spherocytes Not Reportable 12/08/16 06:41 Pappenheimer Bodies Not Reportable 12/08/16 06:41 Sickle Cells Not Reportable 12/08/16 06:41 Target Cells Not Reportable 12/08/16 06:41 Tear Drop Cells Not Reportable 12/08/16 06:41 Ovalocytes Not Reportable 12/08/16 06:41 Helmet Cells Not Reportable 12/08/16 06:41 Narayan-Coolin Bodies Not Reportable 12/08/16 06:41 [place] Rings Not Reportable 12/08/16 06:41 [place] Cells Not Reportable 12/08/16 06:41 Bite Cells Not Reportable 12/08/16 06:41 Crenated Cell Not Reportable 12/08/16 06:41 Elliptocytes Not Reportable 12/08/16 06:41 Acanthocytes (Spur) Not Reportable 12/08/16 06:41 Rouleaux Not Reportable 12/08/16 06:41 Hemoglobin C Crystals Not Reportable 12/08/16 06:41 Schistocytes Not Reportable 12/08/16 06:41 Malaria parasites Not Reportable 12/08/16 06:41 Rohan Bodies Not Reportable 12/08/16 06:41 Hem Pathologist Commnt No 12/08/16 06:41 PT 13.9 Sec. (12.2-14.9) 12/07/16 02:18 INR 1.08 (0.87-1.13) 12/07/16 02:18 APTT 23.7 Sec. (24.2-36.6) L 12/07/16 02:18 Sodium 137 mmol/L (137-145) 12/08/16 06:41 Potassium 4.0 mmol/L (3.6-5.0) 12/08/16 06:41 Chloride 101.1 mmol/L (98-107) 12/08/16 06:41 Carbon Dioxide 28 mmol/L (22-30) 12/08/16 06:41 Anion Gap 12 mmol/L 12/08/16 06:41 BUN 11 mg/dL (9-20) 12/08/16 06:41 Creatinine 0.8 mg/dL (0.8-1.5) 12/08/16 06:41 Estimated GFR > 60 ml/min 12/08/16 06:41 BUN/Creatinine Ratio 13.75 % 12/08/16 06:41 Glucose 112 mg/dL (75-100) H 12/08/16 06:41 POC Glucose 102 (70-105) 12/07/16 21:54 Calcium 8.2 mg/dL (8.4-10.2) L 12/08/16 06:41 Total Bilirubin 0.3 mg/dL (0.1-1.2) 12/07/16 02:18 AST 16 units/L (5-40) 12/07/16 02:18 ALT 12 units/L (7-56) 12/07/16 02:18 Alkaline Phosphatase 57 units/L (35-129) 12/07/16 02:18 Troponin T < 0.010 ng/mL (0.00-0.029) 12/07/16 08:17 Total Protein 6.9 g/dL (6.3-8.2) 12/07/16 02:18 Albumin 3.5 g/dL (3.9-5) L 12/07/16 02:18 Albumin/Globulin Ratio 1.0 % 12/07/16 02:18 Lipase 25 units/L (13-60) 12/07/16 02:18 Urine Color Yellow (Yellow) 12/07/16 04:16 Urine Turbidity Clear (Clear) 12/07/16 04:16 Urine pH 5.0 (5.0-7.0) 12/07/16 04:16 Ur Specific [place] 1.026 (1.003-1.030) 12/07/16 04:16 Urine Protein <15 mg/dl mg/dL (Negative) 12/07/16 04:16 Urine Glucose (UA) Neg mg/dL (Negative) 12/07/16 04:16 Urine Ketones Neg mg/dL (Negative) 12/07/16 04:16 Urine Blood Neg (Negative) 12/07/16 04:16 Urine Nitrite Neg (Negative) 12/07/16 04:16 Urine Bilirubin Neg (Negative) 12/07/16 04:16 Urine Urobilinogen < 2.0 mg/dL (<2.0) 12/07/16 04:16 Ur Leukocyte Esterase Neg (Negative) 12/07/16 04:16 Urine WBC (Auto) < 1.0 /HPF (0.0-6.0) 12/07/16 04:16 Urine RBC (Auto) 0.0 /HPF (0.0-6.0) 12/07/16 04:16 Urine Mucus Few /HPF 12/07/16 04:16 Blood Type O POSITIVE 12/07/16 02:18 Antibody Screen Negative 12/07/16 02:18
--- NOTE | 2016-12-08 14:28 | Post Operative Note ---
Pre-op diagnosis: Anemia, Rectal bleeding Post-op diagnosis: other (Hemorrhoids, Tics, Gastritis) Findings: 1. Mild erosive gastritis, cold bx 2. Otherwise normal upper GI tract 3. Pancolonic diverticulosis, but no active bleeding 4. TI normal without CD 5. Grade II Int Hemorrhoids Procedure: EGD/cold biopsy Colonoscopy Anesthesia: MAC Surgeon: GAYR RAYMOND Estimated blood loss: minimal Pathology: list (1. Gastric antrum) Specimen disposition: to lab Condition: stable Disposition: floor (Recs: 1. OK to d/c home. 2. If re-bleeds, get a GI bleed scan, and/or CT angiogram. 3. Topical care of hemorrhoids. 4. F/U in the clinic in 4 weeks to re-check labs. 5. Avoid all NSAIDs; protonix daily therapy.)
--- NOTE | 2016-12-08 14:55 | Operative Report ---
ENDOSCOPY DOCUMENT PROCEDURE PERFORMED: Esophagogastroduodenoscopy with cold biopsy and colonoscopy. PREOPERATIVE DIAGNOSIS: Anemia, abdominal pain, rectal bleeding, family history of Crohn's. POSTOPERATIVE DIAGNOSES: Gastritis, diverticulosis, hemorrhoids, no evidence of Crohn's disease. ENDOSCOPIST: Greg Romo M.D. INSTRUMENT: MD Insider video endoscope. PROCEDURE PERFORMED: Esophagogastroduodenoscopy with cold biopsy and colonoscopy. MEDICATIONS: MAC anesthesia by Anesthesia Services. COMPLICATIONS: No apparent complications. ESTIMATED BLOOD LOSS: Minimal. SPECIMENS: Gastric antrum. IMPLANTS: None. OBIEE LEAD DEVELOPER: None. CONDITION AT COMPLETION: Stable. TECHNIQUE: The patient was informed of the risks and benefits of the procedure. He signed the informed consent to proceed. He was placed in left lateral decubitus position. The above sedative medications were given. His vital signs remained stable throughout the procedure. The instrument was advanced from the mouth to the second portion of the duodenum under direct visualization. At that point, the bowel was insufflated and the endoscope was slowly withdrawn. The bed was then rotated and the colonoscope was advanced from the anus to the cecum under direct visualization. The cecum was identified by cannulation of the terminal ileum. The bowel was insufflated and the endoscope was slowly withdrawn. The quality of preparation was good. FINDINGS: 1. No blood and no blood clots in the upper or lower GI tract. 2. Mild erosive gastritis in the antrum of the stomach, status post cold biopsy. 3. Otherwise, normal upper gastrointestinal tract. 4. Pancolonic diverticulosis, moderately severe, but no evidence of active bleeding. 5. The terminal ileum was cannulated and appeared normal without evidence of Crohn's disease. 6. Grade 2 internal hemorrhoids. RECOMMENDATIONS: 1. Okay to discharge the patient home. 2. If the patient rebleeds, he needs a GI bleeding scan and/or a CT angiogram. 3. Topical care of hemorrhoids. 4. Follow up in the clinic in 4 weeks to recheck his labs. 5. Avoid all nonsteroidal anti-inflammatory drugs and Protonix daily therapy. JOB# [id number] TABITHA/ANDRE
[2016-12-09 07:24] LABS: Basophils % (Auto) 0.6 % (0.0-1.8); Eosinophils % (Auto) 2.1 % (0.0-4.3); Hematocrit 29.3 % (35.5-45.6); Hemoglobin 9.9 gm/dl (11.8-15.2); Mean Corpuscular HGB Conc 34 % (32-34); Mean Corpuscular Hemoglobin 32 pg (28-32); Mean Corpuscular Volume 95 fl (84-94); Platelet Count 233 K/mm3 (140-440); Red Blood Count 3.08 M/mm3 (3.65-5.03); Red Cell Distribution Width 13.6 % (13.2-15.2); White Blood Count 5.4 K/mm3 (4.5-11.0)
[2016-12-09] MEDS: NOVOLOG SUB-Q SCH (07:34)
--- NOTE | 2016-12-09 08:15 | Gastroenterology Progress Note ---
Assessment and Plan - Patient Problems (1) Diverticulosis of colon with hemorrhage Current Visit: Yes Status: Acute Plan to address problem: S/p LGI bleed secondary to diverticulosis No recurrence. H&H stable. OK to go home GI quesada. I will s/o at this point. Patient advised to f/u in the office in 3-4 weeks. May benefit from iron therapy for a month. Thank you for this consultation. (2) GI bleed Current Visit: Yes Status: Acute Qualifiers: GI bleed type/associated pathology: unspecified gastrointestinal hemorrhage type Gastritis type: G Qualified Code(s): K92.2 - Gastrointestinal hemorrhage, unspecified Subjective Date of service: 12/09/16 Principal diagnosis: Gastrointestinal bleeding Interval history: The patient reports feeling well. No bleeding overnight. No discomfort. Objective - Constitutional Vitals: Temp Pulse Resp BP Pulse Ox 98.6 F 84 18 99/64 100 12/09/16 06:27 12/09/16 06:27 12/09/16 06:27 12/09/16 06:27 12/09/16 06:27 General appearance: no acute distress - EENT ENT: hearing intact, clear oral mucosa, dentition normal - Neck Neck: supple, normal ROM - Respiratory Respiratory effort: normal Respiratory: bilateral: CTA - Cardiovascular Rhythm: regular - Gastrointestinal General gastrointestinal: Present: soft, non-tender, non-distended, normal bowel sounds. Absent: hepatomegaly, splenomegaly - Neurologic Neurological: alert and oriented x3 - Psychiatric Psychiatric: appropriate mood/affect, intact judgment & insight - Labs CBC & Chem 7: 12/09/16 06:47 12/08/16 06:41 Labs: Laboratory Results - last 24 hr 12/08/16 12/08/16 12/08/16 06:41 09:15 17:23 WBC RBC Hgb Hct MCV MCH MCHC RDW Plt Count Lymph % (Auto) [place] % (Auto) Eos % (Auto) Baso % (Auto) Lymph # [place] # Eos # Baso # Add Manual Diff Complete Total Counted 100 Seg Neutrophils % Seg Neuts % (Manual) 31.0 L Band Neutrophils % 3.0 Lymphocytes % (Manual) 52.0 H Reactive Lymphs % (Man) 0 Monocytes % (Manual) 14.0 H Eosinophils % (Manual) 0 Basophils % (Manual) 0 Metamyelocytes % 0 Myelocytes % 0 Promyelocytes % 0 Blast Cells % 0 Nucleated RBC % Not Reportable Seg Neutrophils # Seg Neutrophils # Man 1.5 L Band Neutrophils # 0.1 Lymphocytes # (Manual) 2.5 Abs React Lymphs (Man) 0.0 Monocytes # (Manual) 0.7 Eosinophils # (Manual) 0.0 Basophils # (Manual) 0.0 Metamyelocytes # 0.0 Myelocytes # 0.0 Promyelocytes # 0.0 Blast Cells # 0.0 WBC Morphology Not Reportable Hypersegmented Neuts Not Reportable Hyposegmented Neuts Not Reportable Hypogranular Neuts Not Reportable Smudge Cells Not Reportable Toxic Granulation Not Reportable Toxic Vacuolation Not Reportable Dohle Bodies Not Reportable Pelger-Huet Anomaly Not Reportable Cornelia Rods Not Reportable Platelet Estimate Not Reportable Clumped Platelets Not Reportable Plt Clumps, EDTA Not Reportable Large Platelets Not Reportable Giant Platelets Not Reportable Platelet Satelliting Not Reportable Plt Morphology Comment Not Reportable RBC Morphology Not Reportable Dimorphic RBCs Not Reportable Polychromasia Not Reportable Hypochromasia Not Reportable Poikilocytosis Not Reportable Anisocytosis 1+ Microcytosis Not Reportable Macrocytosis Not Reportable Spherocytes Not Reportable Pappenheimer Bodies Not Reportable Sickle Cells Not Reportable Target Cells Not Reportable Tear Drop Cells Not Reportable Ovalocytes Not Reportable Helmet Cells Not Reportable Narayan-Colton Bodies Not Reportable [place] Rings Not Reportable [place] Cells Not Reportable Bite Cells Not Reportable Crenated Cell Not Reportable Elliptocytes Not Reportable Acanthocytes (Spur) Not Reportable Rouleaux Not Reportable Hemoglobin C Crystals Not Reportable Schistocytes Not Reportable Malaria parasites Not Reportable Rohan Bodies Not Reportable Hem Pathologist Commnt No POC Glucose 105 129 H 12/08/16 12/09/16 20:51 06:47 WBC 5.4 RBC 3.08 L Hgb 9.9 L Hct 29.3 L MCV 95 H MCH 32 MCHC 34 RDW 13.6 Plt Count 233 Lymph % (Auto) 53.0 H [place] % (Auto) 8.4 H Eos % (Auto) 2.1 Baso % (Auto) 0.6 Lymph # 2.9 [place] # 0.5 Eos # 0.1 Baso # 0.0 Add Manual Diff Total Counted Seg Neutrophils % 35.9 L Seg Neuts % (Manual) Band Neutrophils % Lymphocytes % (Manual) Reactive Lymphs % (Man) Monocytes % (Manual) Eosinophils % (Manual) Basophils % (Manual) Metamyelocytes % Myelocytes % Promyelocytes % Blast Cells % Nucleated RBC % Seg Neutrophils # 1.9 Seg Neutrophils # Man Band Neutrophils # Lymphocytes # (Manual) Abs React Lymphs (Man) Monocytes # (Manual) Eosinophils # (Manual) Basophils # (Manual) Metamyelocytes # Myelocytes # Promyelocytes # Blast Cells # WBC Morphology Hypersegmented Neuts Hyposegmented Neuts Hypogranular Neuts Smudge Cells Toxic Granulation Toxic Vacuolation Dohle Bodies Pelger-Huet Anomaly Cornelia Rods Platelet Estimate Clumped Platelets Plt Clumps, EDTA Large Platelets Giant Platelets Platelet Satelliting Plt Morphology Comment RBC Morphology Dimorphic RBCs Polychromasia Hypochromasia Poikilocytosis Anisocytosis Microcytosis Macrocytosis Spherocytes Pappenheimer Bodies Sickle Cells Target Cells Tear Drop Cells Ovalocytes Helmet Cells Narayan-Colton Bodies [place] Rings [place] Cells Bite Cells Crenated Cell Elliptocytes Acanthocytes (Spur) Rouleaux Hemoglobin C Crystals Schistocytes Malaria parasites Rohan Bodies Hem Pathologist Commnt POC Glucose 116 H
[2016-12-09 08:27] VITALS: BP 120/77
--- NOTE | 2016-12-09 09:47 | Discharge Summary ---
Providers - Providers Date of Admission: 12/07/16 04:50 Date of discharge: 12/09/16 Attending physician: ANGELITO VAIL GI Primary care physician: MACHINE OPERATOR HOP WORKER Hospitalization Reason for admission: rectal bleeding Condition: Stable Hospital course: The patient is a 51 yo male with rectal bleeding for the past 2 days prior to admission. He has never had this before, and this was acute onset. He has had hematochezia to BRB, no melena nor hematemesis. He denies dyspepsia, dysphagia , or N/V. He has no hx of PUD, but does take ASA and Aleve on a daily basis. He has no hx of abdominal surgery nor prior endoscopy. There is no family hx of GI cancer, but 2 siblings have Crohns by his report. He has no CP or SOB, and has relatively well-controlled HTN and DM. Patient underwent EGD/cold biopsy and colonoscopy that revealed mild erosive gastritis (cold biopsy) with otherwise normal upper GI tract. Colonoscopy revealed pancolonic diverticulosis but no active bleeding and grade 2 internal hemorrhoids. GI recommended avoiding all NSAIDs and daily Protonix therapy. Patient is to follow up in GI clinic in 2-3 weeks. Dedicated discharge time 32 minutes. Disposition: DISCHARGED TO HOME OR SELFCARE Time spent for discharge: 32 - Discharge Diagnoses (1) Acute blood loss anemia Status: Acute (2) Diverticulosis of colon with hemorrhage Status: Acute (3) GI bleed Status: Acute Qualifiers: GI bleed type/associated pathology: unspecified gastrointestinal hemorrhage type Gastritis type: G Qualified Code(s): K92.2 - Gastrointestinal hemorrhage, unspecified (4) Syncope Status: Acute Qualifiers: Syncope type: unspecified Encounter type: E Qualified Code(s): R55 - Syncope and collapse Core Measure Documentation - Palliative Care Palliative Care/ Comfort Measures: Not Applicable - Core Measures Any of the following diagnoses?: none Exam - Constitutional Vitals: Temp Pulse Resp BP Pulse Ox 97.1 F L 73 16 120/77 98 12/09/16 07:30 12/09/16 07:30 12/09/16 07:30 12/09/16 07:30 12/09/16 07:30 General appearance: Present: no acute distress, well-nourished - EENT Eyes: Present: PERRL ENT: hearing intact, clear oral mucosa - Neck Neck: Present: supple, normal ROM - Respiratory Respiratory effort: normal Respiratory: bilateral: CTA - Cardiovascular Heart Sounds: Present: S1 & S2. Absent: rub, click - Extremities Extremities: pulses symmetrical, No edema Peripheral Pulses: within normal limits - Abdominal General gastrointestinal: Present: soft, non-tender, non-distended, normal bowel sounds Male genitourinary: Present: normal - Integumentary Integumentary: Present: clear, warm, dry - Musculoskeletal Musculoskeletal: gait normal, strength equal bilaterally - Psychiatric Psychiatric: appropriate mood/affect, intact judgment & insight - Neurologic Neurologic: CNII-XII intact, moves all extremities Plan Activity: no restrictions Weight Bearing Status: Full Weight Bearing Diet: regular Follow up with: PRIMARY CAREMD [Primary Care Provider] - 3-5 Days GARY RAYMOND MD [Staff Physician] - 7 Days Forms: Accompanied Note Prescriptions: Pantoprazole [Protonix TAB] 40 mg PO QDAY #30 tablet
[2016-12-09] MEDS: PROTONIX PO SCH (10:58)
== END 2016-12-09 12:00 | disposition home or self-care (01) | DRG 393 ==
LOC: ED 01:53 → 4A 04:50
PROVIDERS: ADMIT Internal Medicine; ATTEND Hospitalist
PROC: 0DB98ZX Excision of Duodenum, Via Natural or Artificial Opening Endoscopic, Diagnostic (ICD-10-PCS; principal; 2016-12-08)
PROC: 0DJD8ZZ Inspection of Lower Intestinal Tract, Via Natural or Artificial Opening Endoscopic (ICD-10-PCS; 2016-12-08)
DX: K64.1 Second degree hemorrhoids (principal); K57.31 Diverticulosis of large intestine without perforation or abscess with bleeding; K29.01 Acute gastritis with bleeding; D62 Acute posthemorrhagic anemia; I10 Essential (primary) hypertension; E11.9 Type 2 diabetes mellitus without complications; I25.10 Atherosclerotic heart disease of native coronary artery without angina pectoris; E78.5 Hyperlipidemia, unspecified; Z83.79 Family history of other diseases of the digestive system; Z79.82 Long term (current) use of aspirin; Z79.84 Long term (current) use of oral hypoglycemic drugs
CPT/HCPCS: 36415; 74176; 80048; 80053; 81001; 82962; 83690; 84484; 85007; 85014; 85018; 85025; 85610; 85730; 86850; 86900; 86901; 88305; 88342; 93005; 93010; 96361; 96374; C9113; J2704; J7030

== ENCOUNTER 2019-04-21 20:54 | Emergency (ER) | payer OTHER ==
--- NOTE | 2019-04-21 21:56 | Event Note ---
ED Screening Note Date of service: 04/21/19 Time: 21:53 ED Screening Note: 54 f/o male comes in for neck and back pain , dizziness, ringing of the ears. This initial assessment/diagnostic orders/clinical plan/treatment(s) is/are subject to change based on patients health status, clinical progression and re- assessment by fellow clinical providers in the ED. Further treatment and workup at subsequent clinical providers discretion. Patient/guardian urged not to elope from the ED as their condition may be serious if not clinically assessed and managed. Initial orders include:
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
[2019-04-22] MEDS ORDERED: DELTASONE PO ONE (02:45)
[2019-04-22] MEDS ORDERED: TORADOL IM ONE (02:45)
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
[2019-04-22 04:02] VITALS: BP 138/89
== END 2019-04-22 04:02 | disposition home or self-care (01) ==
LOC: ED 20:54
DX: S16.1XXA Strain of muscle, fascia and tendon at neck level, initial encounter (principal); S39.012A Strain of muscle, fascia and tendon of lower back, initial encounter; E11.9 Type 2 diabetes mellitus without complications; E78.00 Pure hypercholesterolemia, unspecified; Z98.890 Other specified postprocedural states; Z79.84 Long term (current) use of oral hypoglycemic drugs; V49.49XA Driver injured in collision with other motor vehicles in traffic accident, initial encounter; Y93.89 Activity, other specified; Y92.410 Unspecified street and highway as the place of occurrence of the external cause; Y99.8 Other external cause status
CPT/HCPCS: 72040; 72100; 96372; 99283; J1885; J7512

== ENCOUNTER 2019-07-17 11:54 | Emergency (ER) | payer SELFPAY ==
--- NOTE | 2019-07-17 12:37 | Emergency Department Report ---
Blank Doc - Documentation Documentation: 54-year-old male that presents with left shoulder pain after feeling a popping sensation. Stated now has right shoulder pain after applying more pressure to the right shoulder. Denies any trauma. This initial assessment/diagnostic orders/clinical plan/treatment(s) is/are sub ject to change based on patient's health status, clinical progression and re- assessment by fellow clinical providers in the ED. Further treatment and workup at subsequent clinical providers discretion. Patient/guardians urged not to elope from the ED as their condition may be serious if not clinically assessed and managed. Initial orders include: 1- Patient sent to [facility] for further evaluation and treatment 2- xrays
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
[2019-07-17] MEDS ORDERED: dexAMETHasone 20 MG/5 ML VIAL IM ONE (13:41)
[2019-07-17] MEDS ORDERED: KETOROLAC 30 MG/1 ML INJ IM ONE (13:41)
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
[2019-07-17 14:29] VITALS: BP 146/100
== END 2019-07-17 14:55 | disposition home or self-care (01) ==
LOC: ED 11:54
DX: M77.9 Enthesopathy, unspecified (principal); I10 Essential (primary) hypertension; E78.5 Hyperlipidemia, unspecified
CPT/HCPCS: 73030; 96372; 99283; J1100; J1885